=== PATIENT | female | born 1950 | race Caucasian/White ===

== ENCOUNTER 2018-07-07 00:02 | Emergency (ER) | payer MEDICARE, SELFPAY ==
[2018-07-07 00:09] VITALS: BP 174/90; PULSE 89; RESP 16; TEMP 36.7; O2SAT 98; BMI 27.3
--- NOTE | 2018-07-07 01:30 | ED.EPISTAXIS ---
HPI - Epistaxis General Chief complaint: Nasal Problem Stated complaint: nose bleed Time Seen by Provider: 07/07/18 00:11 Source: patient and EMS Mode of arrival: EMS Limitations: no limitations History of Present Illness HPI Narrative: Patient is a 67-year-old female who presents with nosebleed from the left side. It has been ongoing for the last hour and a half. She does not take aspirin daily but did take 1 aspirin today. She is visiting from out of town. It was running down her throat she has been applying pressure and not able to get it to stop. MD complaint: epistaxis Location: left nostril Related Data Home Medications Medication Instructions Recorded Confirmed CALCIUM CARBONATE 1,000 mg PO PRN #0 02/11/11 CHOLECALCIFEROL (VITAMIN D3) 400 unit PO QDAY #0 02/11/11 (Vitamin D3) COENZYME Q10 (CO Q-10) 100 mg PO Q DAY #0 02/11/11 LYSINE (L-LYSINE) 1,000 mg PO Q DAY #0 02/11/11 MULTIVITAMIN (Multiple Vitamins 1 tab PO Q DAY #0 02/11/11 Daily) Quercetin (#QUERCETIN) 500 mg PO Q DAY #0 02/11/11 THYROID (ARMOUR THYROID) 60 mg PO Q DAY #0 02/11/11 Allergies Allergy/AdvReac Type Severity Reaction Status Date / Time Penicillins Allergy Verified 07/07/18 00:09 Review of Systems Review of Systems All systems reviewed & are unremarkable except as noted in HPI and below Eyes Denies change in vision, Denies eye discharge, Denies irritation and Denies loss of vision ENT Ears, Nose, Mouth, and Throat: Reports as per HPI Cardiovascular Denies dyspnea and Denies dyspnea on exertion Respiratory Denies cough, Denies dyspnea, Denies dyspnea on exertion and Denies wheezing Gastrointestinal Gastrointestinal: Denies abdominal pain, Denies change in bowel habits, Denies diarrhea, Denies nausea and Denies vomiting Musculoskeletal Denies back pain, Denies muscle weakness, Denies numbness and Denies tingling Integumentary/Breasts Denies pruritus, Denies erythema, Denies rash and Denies wounds Neurologic Denies loss of vision, Denies numbness and Denies tingling Allergic/Immunologic Denies wheezing PFSH Social History Smoking Status: Never smoker Exam Initial Vital Signs Initial Vital Signs: Vital Signs Temperature 98.0 F 07/07/18 00:09 Pulse Rate 89 07/07/18 00:09 Respiratory Rate 16 07/07/18 00:09 Blood Pressure 174/90 H 07/07/18 00:09 Pulse Oximetry 98 07/07/18 00:09 GENERAL: Well-appearing, well-nourished and in no acute distress. CARDIOVASCULAR: peripheral pulses in tact, cap refill <2 sec RESPIRATORY: No respiratory distress, speaks in full sentences without difficulty EXTREMITIES: Normal range of motion, no clubbing or edema. Neurovascularly intact NEUROLOGICAL: Cranial nerves II through XII grossly intact. Normal gait and speech. SKIN: Warm, dry, no petechiae, no rashes or lesions. [facility] Nose: septum normal, epistaxis and nasal polyp (Possible left anterior) Procedures Epistaxis Control Time Out Performed: Yes Nostril: left Nose Prepped With: oxymetazoline Direct Inspection: unable to visualize Clots Removed by: blowing nose Cautery Used: none Device Inserted: other Patient Tolerated Procedure: well Course Vital Signs - 8 hr 07/07/18 00:09 07/07/18 02:16 Temperature 98.0 F 98.0 F Pulse Rate 89 69 Respiratory Rate 16 16 Blood Pressure 174/90 H 151/84 H Pulse Oximetry 98 99 MDM - Epistaxis MDM Narrative Medical decision making narrative: Initially clamp placed for more than 30 min. She has had coughed and blew out large multiple blood clots. Bleeding did seem to slow significantly. No longer dripping down her throat. Afrin and nasal clamp placed again for 30-45 minutes. She still felt like it was dripping. Attempted nasal balloon which she did not tolerate. She then felt the bleeding was stopped remains stop from more than 10 min and she felt ready and able to go home. Discharge Plan Departure Patient Disposition: Home Clinical Impression: Epistaxis Discharge Date/Time: 07/07/18 02:16 Interventions: ED Discharge Assessment Last Done: 07/07/18 02:16 Instructions: DI for Nosebleed Activity Restrictions/Additional Instructions: *You have been diagnosed with nosebleed *What to do: Is bleeding starts again placed on a tilt head forward. Leave clamp on for 30-60 minutes. May use Afrin x1 only if needed if the bleeding continues. If still bleeding after Afrin return to ED *Continue to take medications as directed *Follow up with your primary care provider in 2-3 days *Return to ER if you should have persistent worsening nose bleed, running down throat, or any new, worsening or concerning symptoms Prescriptions: No Action THYROID (ARMOUR THYROID) 60 mg PO Q DAY Qty: 0 RF: 0 LYSINE (L-LYSINE) 1,000 mg PO Q DAY Qty: 0 RF: 0 MULTIVITAMIN (Multiple Vitamins Daily) 1 tab PO Q DAY Qty: 0 RF: 0 CHOLECALCIFEROL (VITAMIN D3) (Vitamin D3) 400 unit PO QDAY Qty: 0 RF: 0 CALCIUM CARBONATE 1,000 mg PO PRN Qty: 0 RF: 0 COENZYME Q10 (CO Q-10) 100 mg PO Q DAY Qty: 0 RF: 0 Quercetin (#QUERCETIN) 500 mg PO Q DAY Qty: 0 RF: 0
[2018-07-07 02:16] VITALS: BP 151/84; PULSE 69; RESP 16; TEMP 36.7; O2SAT 99
== END 2018-07-07 02:16 | disposition home or self-care (01) ==
PROVIDERS: Emergency Provider Emergency Medicine
DX: R04.0 Epistaxis (principal)
CPT/HCPCS: 30905; 99282